=== PATIENT | male | born 1960 | race Caucasian/White ===

== ENCOUNTER 2017-03-20 14:32 | Emergency (ER) | payer OTHER ==
[~2017-03-20] VITALS: Ht 180.3 cm; Wt 99.8 kg
[2017-03-20 14:32] VITALS: BP 153/98
[~2017-03-20 14:32] MED LIST: BACTRIM DS TAB1 EACH PO; CELEBREX100 MG/1 C PO; DEXILANT60 MG PO; HYDROCODON-ACE1 EAC7 PO; LISINOPRIL/HCTZ PO; LOVASTAT10 PO; MAALOX MAXIMUM355 ML PO; MELOXICAM7.5 MG PO; NEURONTIN 300300 M1 PO; NORCO 5-325 TA1 EACH PO; PERCOCET 5-3251 EACH PO; PRILOSEC20 MG PO; PRILOSEC40 MG PO; PROPRANOLOL 1010 MG PO; PROTONIX40 MG PO; RANITIDINE 150150 M1 PO; ULTRAM 50MG TAB50 MG PO; ZANTAC 150MG T150 MG PO
== END 2017-03-20 16:20 | disposition home or self-care (01) ==
LOC: ER 14:32
DX: G56.22 Lesion of ulnar nerve, left upper limb (principal); I10 Essential (primary) hypertension; K21.9 Gastro-esophageal reflux disease without esophagitis; F17.210 Nicotine dependence, cigarettes, uncomplicated; Z86.19 Personal history of other infectious and parasitic diseases; Z88.0 Allergy status to penicillin

== ENCOUNTER 2017-06-01 17:06 | Emergency (ER) | payer OTHER ==
[~2017-06-01] VITALS: Ht 180.3 cm; Wt 117.0 kg
--- NOTE | ~2017-06-01 | EKG ---
[place] [address] [facility] [place] [place] [address] ELECTROCARDIOGRAM REPORT Name: BRITTANEY AGUILLON Room #: DEP [facility]#: [id number] Admission: 06/01/17 Attend Phys: Discharge: 06/01/17 Date of : 64 Report #: [id number] THIS REPORT FOR: //name// [facility] ED Test Date: 2017-06-01 Test Time: 17:21:30 Pat Name: BRITTANEY AGUILLON Department: Room: Gender: M Hot Dip Plater: MZOOK : 1960 Requested By: Charmaine Ramey Order Number: [id number] MD: Josué Felton Measurements Intervals [place] Rate: 78 P: 18 MS: 181 QRS: -33 QRSD: 94 T: 1 QT: 376 QTc: 429 Interpretive Statements Sinus rhythm Left axis deviation RSR' in V1 or V2, probably normal variant Borderline T wave abnormalities Compared to ECG 04/26/2017 23:59:44 No significant change was found Electronically Signed On 06-02-2017 9:10:43 GUZZLER BUILDER by Josué Felton [email or web address] <ELECTRONICALLY SIGNED> By: Josué Felton MD, [facility] 06/02/17 0910 1721 172 Josué Felton MD, [facility] /EPI
[~2017-06-01 17:06] MED LIST changes: +AVAPRO300 MG PO; +HYDROCHLOROTH12.5 M1 PO; +LASIX 40 MG TAB40 M2 PO; +LISINOPRIL20 MG PO; +LUNESTA2 MG PO; +POTASSIUM20 PO
[2017-06-01 17:58] LABS: ABSOLUTE NEUTROPHILS 3.3 thou/uL (1.4-8.2); BASOPHILS 1.3 % (0.0-2.0); EOSINOPHILS 2.3 % (0.0-3.0); HEMATOCRIT 40.1 % (42.0-52.0); HEMOGLOBIN 13.9 gm/dL (14.0-18.0); LYMPHOCYTES 42.4 % (24.0-44.0); MCH 29.2 pg (26.0-34.0); MCHC 34.7 g/dL (28.0-37.0); MCV 84.1 fL (80.0-100.0); MONOCYTES 9.9 % (1.0-8.0); PLATELET COUNT 257 thou/uL (150-400); POLYS 44.1 % (36.0-66.0); RBC 4.77 mil/uL (4.50-6.00); RDW 14.1 % (10.5-14.5); WBC 7.5 thou/uL (4.0-11.0)
[2017-06-01 17:59] LABS: MANUAL DIFF NO
[2017-06-01 18:08] LABS: ANION GAP 7 mmol/L (7-16); BUN 17 mg/dL (7-18); CALCIUM 8.9 mg/dL (8.5-10.1); CHLORIDE 105 mmol/L (98-107); CO2 27 mmol/L (21-32); GLUCOSE 105 mg/dL (74-106); POTASSIUM 4.2 mmol/L (3.5-5.1); SODIUM 139 mmol/L (136-145)
[2017-06-01 18:17] LABS: TROPONIN-I < 0.04 ng/mL (<0.06)
== END 2017-06-01 19:29 | disposition home or self-care (01) ==
LOC: ER 17:06
PROVIDERS: Emergency Medicine
DX: I10 Essential (primary) hypertension (principal); R06.00 Dyspnea, unspecified; K21.9 Gastro-esophageal reflux disease without esophagitis; F17.210 Nicotine dependence, cigarettes, uncomplicated; Z86.19 Personal history of other infectious and parasitic diseases; Z88.0 Allergy status to penicillin

== ENCOUNTER 2017-06-20 13:32 | Emergency (ER) | payer OTHER ==
[~2017-06-20] VITALS: Ht 180.3 cm; Wt 111.1 kg
--- NOTE | ~2017-06-20 | EKG ---
[place] [address] [place] [address] ELECTROCARDIOGRAM REPORT Name: BRITTANEY AGUILLON Room #: REG [facility]#: [id number] Admission: 06/20/17 Attend Phys: Discharge: Date of : 64 Report #: [id number] THIS REPORT FOR: //name// [facility] ED Test Date: 2017-06-20 Test Time: 13:38:06 Pat Name: BRITTANEY AGUILLON Department: Room: Gender: M Shoe Stainer: YOMAIRA : 1960 Requested By: Charmaine Ramey Order Number: [id number] MD: Brady Cool Measurements Intervals [place] Rate: 82 P: 32 [place]: 168 QRS: -28 QRSD: 91 T: -4 QT: 364 QTc: 425 Interpretive Statements Sinus rhythm Borderline left axis deviation RSR' in V1 or V2, probably normal variant Borderline T wave abnormalities ST elev, probable normal early repol pattern Compared to ECG 06/01/2017 17:21:30 ST (T wave) deviation now present T-wave abnormality still present Electronically Signed On 06-20-2017 16:45:29 PREDATORY GAME HUNTER by Brady Cool [email or web address] <ELECTRONICALLY SIGNED> By: Brady Cool MD, FACC 06/20/17 1645 1338 1338 Brady Cool MD, [facility] /EPI
[2017-06-20 14:15] LABS: ABSOLUTE NEUTROPHILS 2.8 thou/uL (1.4-8.2); BASOPHILS 1.1 % (0.0-2.0); EOSINOPHILS 1.9 % (0.0-3.0); HEMATOCRIT 38.6 % (42.0-52.0); HEMOGLOBIN 13.2 gm/dL (14.0-18.0); LYMPHOCYTES 43.8 % (24.0-44.0); MCH 28.9 pg (26.0-34.0); MCHC 34.2 g/dL (28.0-37.0); MCV 84.3 fL (80.0-100.0); MONOCYTES 9.4 % (1.0-8.0); PLATELET COUNT 245 thou/uL (150-400); POLYS 43.8 % (36.0-66.0); RBC 4.58 mil/uL (4.50-6.00); RDW 13.9 % (10.5-14.5); WBC 6.4 thou/uL (4.0-11.0)
[2017-06-20 14:33] LABS: ANION GAP 5 mmol/L (7-16); BUN 19 mg/dL (7-18); CALCIUM 8.9 mg/dL (8.5-10.1); CHLORIDE 106 mmol/L (98-107); CO2 28 mmol/L (21-32); CREATININE 1.1 mg/dL (0.7-1.3); GLUCOSE 113 mg/dL (74-106); SODIUM 139 mmol/L (136-145)
[2017-06-20 14:41] LABS: TROPONIN-I < 0.04 ng/mL (<0.06)
[2017-06-20] MEDS ORDERED: OMEPRAZOLE20 M2 PO (15:59)
[2017-06-20] MEDS ORDERED: MUCINEX1200 MG PO (15:59)
[2017-06-20 18:04] VITALS: BP 148/86
== END 2017-06-20 16:58 | disposition home or self-care (01) ==
LOC: ER 13:32
PROVIDERS: Emergency Medicine
DX: R07.89 Other chest pain (principal); J06.9 Acute upper respiratory infection, unspecified; I10 Essential (primary) hypertension; K21.9 Gastro-esophageal reflux disease without esophagitis; F17.210 Nicotine dependence, cigarettes, uncomplicated; F10.99 Alcohol use, unspecified with unspecified alcohol-induced disorder; Z98.890 Other specified postprocedural states; Z88.0 Allergy status to penicillin

== ENCOUNTER 2017-09-05 19:26 | Inpatient (IN) | payer OTHER ==
[~2017-09-05] VITALS: Ht 180.3 cm; Wt 108.9 kg
--- NOTE | ~2017-09-05 | EKG ---
[address] [place] [email or web address] [address] ELECTROCARDIOGRAM REPORT Name: BRITTANEY AGUILLON Room #: 208-P ADM IN M.R.#: [id number] Admission: 09/05/17 Attend Phys: Paolo Branch MD Discharge: Date of : 64 Report #: [id number] THIS REPORT FOR: //name// [facility] ED Test Date: 2017-09-05 Test Time: 19:30:51 Pat Name: BRITTANEY AGUILLON Department: Room: 208 Gender: M Police Lieutenant: YOMAIRA : 1960 Requested By: Theresa Cooper Order Number: [id number] MD: Ray Terrazas Measurements Intervals [place] Rate: 78 P: 13 NE: 173 QRS: -40 QRSD: 92 T: 23 QT: 372 QTc: 424 Interpretive Statements Sinus rhythm Left axis deviation RSR' in V1 or V2, probably normal variant Borderline T wave abnormalities Borderline ST elevation, anterior leads Compared to ECG 06/20/2017 13:38:06 No significant changes Electronically Signed On 09-06-2017 7:25:17 CDT by Ray Terrazas [email or web address] <ELECTRONICALLY SIGNED> By: Ray Terrazas MD 09/06/17 0725 29 29 Ray Terrazas MD /EPI
[~2017-09-05 19:26] MED LIST changes: +MUCINEX1200 MG PO; +OMEPRAZOLE20 M2 PO
[2017-09-05 19:29] VITALS: BP 160/99
[2017-09-05] MEDS ORDERED: NORVASC2.5 MG PO (19:52)
[2017-09-05 20:01] LABS: ABSOLUTE NEUTROPHILS 3.4 thou/uL (1.4-8.2); BASOPHILS 1.1 % (0.0-2.0); EOSINOPHILS 2.2 % (0.0-3.0); HEMATOCRIT 41.3 % (42.0-52.0); HEMOGLOBIN 14.1 gm/dL (14.0-18.0); LYMPHOCYTES 39.3 % (24.0-44.0); MCH 28.7 pg (26.0-34.0); MCHC 34.2 g/dL (28.0-37.0); MCV 84.1 fL (80.0-100.0); MONOCYTES 10.4 % (1.0-8.0); PLATELET COUNT 239 thou/uL (150-400); RBC 4.91 mil/uL (4.50-6.00); RDW 14.7 % (10.5-14.5); WBC 7.3 thou/uL (4.0-11.0)
[2017-09-05 20:07] LABS: ANION GAP 8 mmol/L (7-16); BUN 22 mg/dL (7-18); CALCIUM 8.6 mg/dL (8.5-10.1); CHLORIDE 109 mmol/L (98-107); CO2 25 mmol/L (21-32); GLUCOSE 111 mg/dL (74-106); POTASSIUM 4.1 mmol/L (3.5-5.1); SODIUM 142 mmol/L (136-145)
[2017-09-05 20:16] LABS: TROPONIN-I < 0.04 ng/mL (<0.06)
[2017-09-05 21:07] VITALS: BP 160/99
[2017-09-05 21:15] VITALS: BP 143/79
[2017-09-06 00:54] VITALS: BP 140/94
[2017-09-06 02:57] LABS: ANION GAP 7 mmol/L (7-16); BUN 20 mg/dL (7-18); CHLORIDE 108 mmol/L (98-107); CHOLESTEROL 131 mg/dL (<200); CO2 26 mmol/L (21-32); GLUCOSE 146 mg/dL (74-106); HDL CHOLESTEROL 34 mg/dL (>40); LDL CHOLESTEROL 79 mg/dL (<100); POTASSIUM 3.8 mmol/L (3.5-5.1); SODIUM 141 mmol/L (136-145); TC:HDL 3.9 Ratio (Not establshd); TRIGLYCERIDE 92 mg/dL (<150); TROPONIN-I < 0.04 ng/mL (<0.06); VLDL 18 mg/dL (<40)
[2017-09-06 02:58] LABS: SERUM ASSESSMENT Clear
[2017-09-06 05:10] VITALS: BP 121/47
[2017-09-06 07:56] VITALS: BP 143/79
[2017-09-06] MEDS ORDERED: ASPIR 8181 MG PO (10:03)
[2017-09-06 10:19] VITALS: BP 143/79
[2017-09-06 12:07] LABS: GLYCOHEMOGLOBIN (HGB A1C) 4.9 % (4.8-5.6)
== END 2017-09-06 10:32 | disposition home or self-care (01) | DRG 313 ==
LOC: ER 19:26 → 2N 20:54 → EROBS 20:54 → 2N 22:07
PROVIDERS: Emergency Medicine; Nurse Practitioner Family
DX: R07.89 Other chest pain (principal); I50.30 Unspecified diastolic (congestive) heart failure; K21.9 Gastro-esophageal reflux disease without esophagitis; F17.200 Nicotine dependence, unspecified, uncomplicated; G47.33 Obstructive sleep apnea (adult) (pediatric); I11.0 Hypertensive heart disease with heart failure; F19.10 Other psychoactive substance abuse, uncomplicated; Z86.19 Personal history of other infectious and parasitic diseases; Z82.49 Family history of ischemic heart disease and other diseases of the circulatory system; Z88.0 Allergy status to penicillin
CPT/HCPCS: 10081

== ENCOUNTER 2018-01-05 08:41 | Emergency (ER) | payer OTHER ==
[~2018-01-05] VITALS: Ht 180.3 cm; Wt 108.9 kg
--- NOTE | ~2018-01-05 | EKG ---
[address] [place] [address] ELECTROCARDIOGRAM REPORT Name: BRITTANEY AGUILLON Room #: DEP [facility]#: [id number] Admission: 01/05/18 Attend Phys: Discharge: 01/05/18 Date of : 64 Report #: [id number] THIS REPORT FOR: //name// [facility] ED Test Date: 2018-01-05 Test Time: 10:07:08 Pat Name: BRITTANEY AGUILLON Department: Room: Gender: M Group Cio: MZOOK : 1960 Requested By: Jake Nguyen Order Number: [id number] MD: Josué Felton Measurements Intervals [place] Rate: 64 P: -1 DC: 183 QRS: -38 QRSD: 102 T: -22 QT: 428 QTc: 442 Interpretive Statements Sinus rhythm Left axis deviation RSR' in V1 or V2, probably normal variant Borderline T abnormalities, inferior leads Borderline ST elevation, anterior leads Compared to ECG 09/05/2017 19:30:51 No significant changes Electronically Signed On 01-05-2018 14:45:16 CDT by Josué Felton [email or web address] <ELECTRONICALLY SIGNED> By: Josué Felton MD, [facility] 01/05/18 1445 1007 1007 Josué Felton MD, [facility] /EPI
[~2018-01-05 08:41] MED LIST changes: +ASPIR 8181 MG PO; +NORVASC2.5 MG PO
[2018-01-05 09:27] LABS: ABSOLUTE NEUTROPHILS 6.1 thou/uL (1.4-8.2); BASOPHILS 0.5 % (0.0-2.0); EOSINOPHILS 1.5 % (0.0-3.0); HEMATOCRIT 39.5 % (42.0-52.0); HEMOGLOBIN 13.6 gm/dL (14.0-18.0); LYMPHOCYTES 23.1 % (24.0-44.0); MCH 28.8 pg (26.0-34.0); MCHC 34.3 g/dL (28.0-37.0); MCV 83.8 fL (80.0-100.0); MONOCYTES 11.1 % (1.0-8.0); PLATELET COUNT 225 thou/uL (150-400); POLYS 63.8 % (36.0-66.0); RBC 4.71 mil/uL (4.50-6.00); RDW 14.2 % (10.5-14.5); WBC 9.6 thou/uL (4.0-11.0)
[2018-01-05 09:44] LABS: ANION GAP 7 mmol/L (7-16); BUN 15 mg/dL (7-18); CALCIUM 8.6 mg/dL (8.5-10.1); CHLORIDE 103 mmol/L (98-107); CO2 28 mmol/L (21-32); CREATININE 1.1 mg/dL (0.7-1.3); GLUCOSE 100 mg/dL (74-106); POTASSIUM 3.9 mmol/L (3.5-5.1); SODIUM 138 mmol/L (136-145)
[2018-01-05 09:49] LABS: SGOT 20 U/L (15-37); SGPT 24 U/L (30-65); TOTAL BILIRUBIN 0.5 mg/dL (<0.1-1.0); TOTAL PROTEIN 6.3 g/dL (6.4-8.2); TROPONIN-I <0.06 ng/mL (<0.06)
[2018-01-05] MEDS ORDERED: VENTOLIN HFA 1818 GM INH (10:15)
[2018-01-05] MEDS ORDERED: PREDNISONE 20 M20 MG PO (10:15)
[2018-01-05 10:26] LABS: URINE BILIRUBIN NEGATIVE (Negative); URINE BLOOD TRACE (Negative); URINE CLARITY CLEAR; URINE COLOR YELLOW; URINE GLUCOSE-RANDOM* NEGATIVE (Negative); URINE KETONES NEGATIVE (Negative); URINE LEUKOCYTES-REFLEX NEGATIVE (Negative); URINE NITRITE-REFLEX NEGATIVE (Negative); URINE PROTEIN (DIPSTICK) NEGATIVE (Negative); URINE SPECIFIC GRAVITY 1.015 (1.005-1.035); URINE UROBILINOGEN 0.2 E.U./dl (0.2-1.0)
== END 2018-01-05 10:42 | disposition home or self-care (01) ==
LOC: ER 08:41
PROVIDERS: Emergency Medicine
DX: J06.9 Acute upper respiratory infection, unspecified (principal); J98.01 Acute bronchospasm; R19.7 Diarrhea, unspecified; F17.200 Nicotine dependence, unspecified, uncomplicated; I11.0 Hypertensive heart disease with heart failure; I50.9 Heart failure, unspecified; K21.9 Gastro-esophageal reflux disease without esophagitis; M19.90 Unspecified osteoarthritis, unspecified site; E78.00 Pure hypercholesterolemia, unspecified; Z88.0 Allergy status to penicillin

== ENCOUNTER 2018-11-25 20:35 | Emergency (ER) | payer OTHER ==
[~2018-11-25] VITALS: Ht 180.3 cm; Wt 108.9 kg
[~2018-11-25 20:35] MED LIST changes: +PREDNISONE 20 M20 MG PO; +VENTOLIN HFA 1818 GM INH
[2018-11-25] MEDS ORDERED: LISINOPRIL10 MG PO (20:54)
[2018-11-25] MEDS ORDERED: OMEPRAZOLE 20 M20 M1 PO (20:55)
[2018-11-25 21:17] LABS: ABSOLUTE NEUTROPHILS 3.4 thou/uL (1.4-8.2); BASOPHILS 1.2 % (0.0-2.0); HEMATOCRIT 39.1 % (42.0-52.0); HEMOGLOBIN 13.3 gm/dL (14.0-18.0); MCH 27.8 pg (26.0-34.0); MCV 81.8 fL (80.0-100.0); MONOCYTES 11.1 % (1.0-8.0); PLATELET COUNT 207 thou/uL (150-400); POLYS 45.7 % (36.0-66.0); RBC 4.78 mil/uL (4.50-6.00); RDW 14.5 % (10.5-14.5); WBC 7.4 thou/uL (4.0-11.0)
[2018-11-25 21:33] LABS: CALCIUM 8.3 mg/dL (8.5-10.1); CREATININE 1.1 mg/dL (0.7-1.3); POTASSIUM 3.3 mmol/L (3.5-5.1)
[2018-11-25] MEDS ORDERED: DOXYCYCLINE 10100 MG PO (22:41)
[2018-11-25 23:34] LABS: AMP/METHAMP POSITIVE (Negative); BARBITURATES Negative (Negative); BENZODIAZEPINES Negative (Negative); COCAINE Negative (Negative); METHADONE Negative (Negative); OPIATES Negative (Negative); PCP Negative (Negative)
[2018-11-26 00:30] VITALS: BP 142/86
--- NOTE | 2018-11-26 07:51 | EKG ---
[place] [address] [facility] [place] [address] ELECTROCARDIOGRAM REPORT Name: BRITTANEY AGUILLON Room #: DEP [facility]#: [id number] ������������������ Admission: 11/25/18 ������������������ Attend Phys: Discharge: 11/25/18 ������������������ Date of : 64 Report #: [id number] ����������������������������������������������������������������� [id number] THIS REPORT FOR: //name// [facility] ED Test Date: 2018-11-25 Test Time: 20:42:02 Pat Name: BRITTANEY AGUILLON Department: Room: Gender: M Automatic Developer: YOGESH : 1960 Requested By: Meliton Gilliam Order Number: [id number] MD: Josué Felton Measurements Intervals [place] Rate: 81 P: 39 MT: 170 QRS: -44 QRSD: 107 T: -22 QT: 391 QTc: 454 Interpretive Statements Sinus rhythm Abnormal R-wave progression, late transition Nonspecific T wave abnormality Compared to ECG 01/05/2018 10:07:08 Nonspecific change in the T wave abnormality Electronically Signed On 11-26-2018 7:51:07 CDT by Josué Felton [email or web address] ��������������������������������������������� <ELECTRONICALLY SIGNED> ���������������������������������������� By: Josué Felton MD, [facility] ��������������������������������������������� 11/26/18 0751 41 41 Josué Felton MD, [facility] /EPI
== END 2018-11-25 21:50 | disposition home or self-care (01) ==
LOC: ER 20:35
PROVIDERS: Emergency Medicine
DX: L03.114 Cellulitis of left upper limb (principal); I10 Essential (primary) hypertension; K21.9 Gastro-esophageal reflux disease without esophagitis; B19.20 Unspecified viral hepatitis C without hepatic coma; G47.33 Obstructive sleep apnea (adult) (pediatric); B19.10 Unspecified viral hepatitis B without hepatic coma; M19.90 Unspecified osteoarthritis, unspecified site; E78.00 Pure hypercholesterolemia, unspecified; F17.210 Nicotine dependence, cigarettes, uncomplicated; Z88.0 Allergy status to penicillin; Z79.899 Other long term (current) drug therapy

== ENCOUNTER 2018-12-31 09:39 | Emergency (ER) | payer OTHER ==
[~2018-12-31] VITALS: Ht 172.7 cm; Wt 83.9 kg
[~2018-12-31 09:39] MED LIST changes: +DOXYCYCLINE 10100 MG PO; +LISINOPRIL10 MG PO; +OMEPRAZOLE 20 M20 M1 PO
[2018-12-31 11:34] LABS: ABSOLUTE NEUTROPHILS 2.9 thou/uL (1.4-8.2); BASOPHILS 1.1 % (0.0-2.0); EOSINOPHILS 2.9 % (0.0-3.0); HEMATOCRIT 41.6 % (42.0-52.0); MCH 27.8 pg (26.0-34.0); MCHC 33.6 g/dL (28.0-37.0); MCV 82.7 fL (80.0-100.0); MONOCYTES 11.8 % (1.0-8.0); PLATELET COUNT 248 thou/uL (150-400); POLYS 46.2 % (36.0-66.0); RBC 5.02 mil/uL (4.50-6.00); RDW 14.5 % (10.5-14.5); WBC 6.2 thou/uL (4.0-11.0)
[2018-12-31 11:42] LABS: CALCIUM 8.6 mg/dL (8.5-10.1); POTASSIUM 3.8 mmol/L (3.5-5.1)
[2018-12-31 11:48] LABS: ALBUMIN 3.1 g/dL (3.4-5.0); TOTAL BILIRUBIN 0.1 mg/dL (<0.1-1.0); TOTAL PROTEIN 6.5 g/dL (6.4-8.2)
[2018-12-31 13:08] LABS: AMP/METHAMP Negative (Negative); BARBITURATES Negative (Negative); BENZODIAZEPINES POSITIVE (Negative); COCAINE Negative (Negative); METHADONE Negative (Negative); OPIATES Negative (Negative); PCP Negative (Negative)
[2018-12-31 13:48] VITALS: BP 155/70
--- NOTE | 2019-01-01 18:19 | EKG ---
[place] [address] [facility] [place] [address] ELECTROCARDIOGRAM REPORT Name: BRITTANEY AGUILLON Room #: DEP [facility]#: [id number] ������������������ Admission: 12/31/18 ������������������ Attend Phys: Discharge: 12/31/18 ������������������ Date of : 64 Report #: [id number] ����������������������������������������������������������������� [id number] THIS REPORT FOR: //name// [facility] ED Test Date: 2018-12-31 Test Time: 10:16:41 Pat Name: BRITTANEY AGUILLON Department: Room: Gender: M Composition Teacher: Murtaza : 1960 Requested By: Sukhdev Dozier Order Number: [id number] MD: Josué Felton Measurements Intervals [place] Rate: 57 P: 34 HI: 187 QRS: -18 QRSD: 102 T: -61 QT: 426 QTc: 415 Interpretive Statements Sinus rhythm Borderline left axis deviation T wave abnormality, inferior and lateral leads Compared to ECG 11/25/2018 20:42:02 T-wave abnormality still present Electronically Signed On 01-01-2019 18:19:36 CDT by Josué Felton [email or web address] ��������������������������������������������� <ELECTRONICALLY SIGNED> ���������������������������������������� By: Josué Felton MD, [facility] ��������������������������������������������� 01/01/19 1819 1016 1016 Josué Felton MD, [facility] /EPI
== END 2018-12-31 13:56 | disposition home or self-care (01) ==
LOC: ER 09:39
PROVIDERS: Emergency Medicine
DX: R56.9 Unspecified convulsions (principal); F19.10 Other psychoactive substance abuse, uncomplicated; F17.210 Nicotine dependence, cigarettes, uncomplicated; K21.9 Gastro-esophageal reflux disease without esophagitis; I11.0 Hypertensive heart disease with heart failure; I50.9 Heart failure, unspecified; G47.33 Obstructive sleep apnea (adult) (pediatric); M19.90 Unspecified osteoarthritis, unspecified site; E78.00 Pure hypercholesterolemia, unspecified; Z88.0 Allergy status to penicillin

== ENCOUNTER 2019-11-24 11:06 | Emergency (ER) | payer OTHER ==
[~2019-11-24] VITALS: Ht 180.3 cm; Wt 107.2 kg
[2019-11-24 11:40] LABS: ABSOLUTE NEUTROPHILS 4.7 thou/uL (1.4-8.2); BASOPHILS 0.8 % (0.0-2.0); EOSINOPHILS 2.3 % (0.0-3.0); HEMATOCRIT 42.1 % (42.0-52.0); HEMOGLOBIN 14.1 gm/dL (14.0-18.0); LYMPHOCYTES 27.6 % (24.0-44.0); MCHC 33.6 g/dL (28.0-37.0); MCV 83.4 fL (80.0-100.0); PLATELET COUNT 279 thou/uL (150-400); POLYS 61.3 % (36.0-66.0); RBC 5.05 mil/uL (4.50-6.00); RDW 15.8 % (10.5-14.5); WBC 7.7 thou/uL (4.0-11.0)
[2019-11-24 11:51] LABS: ANION GAP 2 mmol/L (7-16); BUN 19 mg/dL (7-18); CALCIUM 8.4 mg/dL (8.5-10.1); CHLORIDE 102 mmol/L (98-107); CO2 30 mmol/L (21-32); CREATININE 1.1 mg/dL (0.7-1.3); GLUCOSE 140 mg/dL (74-106); POTASSIUM 3.7 mmol/L (3.5-5.1); SODIUM 134 mmol/L (136-145)
[2019-11-24 11:52] LABS: APTT 28.3 Seconds (24.5-32.8)
[2019-11-24 12:01] LABS: SGOT 19 U/L (15-37); SGPT 24 U/L (30-65); TOTAL BILIRUBIN 0.2 mg/dL (0.2-1.0); TOTAL PROTEIN 6.1 g/dL (6.4-8.2); TROPONIN-I <0.06 ng/mL (<0.06)
[2019-11-24 12:37] LABS: AMP/METHAMP Negative (Negative); BARBITURATES Negative (Negative); BENZODIAZEPINES Negative (Negative); COCAINE Negative (Negative); METHADONE Negative (Negative); OPIATES Negative (Negative); PCP Negative (Negative)
[2019-11-24 14:58] VITALS: BP 165/91
--- NOTE | 2019-11-25 07:42 | EKG ---
[facility] [place] [address] ELECTROCARDIOGRAM REPORT Name: BRITTANEY AGUILLON Room #: DEP [facility]#: [id number] Admission: 11/24/19 Attend Phys: Discharge: 11/24/19 Date of : 64 Report #: [id number] THIS REPORT FOR: cc: FAM - Family physician unknown FAM - Family physician unknown Josué Felton MD [facility] THIS REPORT FOR: //name// [facility] ED Test Date: 2019-11-24 Test Time: 11:08:00 Pat Name: BRITTANEY AGUILLON Department: Room: Gender: Dish Up Person: MONIKA : 1960 Requested By: Meliton Gilliam Order Number: [id number] MD: Josué Felton Measurements Intervals [place] Rate: 80 P: 21 DC: 176 QRS: -42 QRSD: 96 T: -32 QT: 398 QTc: 460 Interpretive Statements Sinus rhythm Left atrial enlargement Left axis deviation Abnormal R-wave progression, late transition Borderline T abnormalities, inferior leads Borderline ST elevation, anterior leads Compared to ECG 12/31/2018 10:16:41 No significant change was found Electronically Signed On 11-25-2019 7:41:32 CDT by Josué Felton [email or web address] <ELECTRONICALLY SIGNED> By: Josué Felton MD, [facility] 11/25/19 0741 1108 1108 Josué Felton MD, [facility] /EPI
== END 2019-11-24 14:59 | disposition home or self-care (01) ==
LOC: ER 11:06
PROVIDERS: Emergency Medicine
DX: R41.0 Disorientation, unspecified (principal); R20.0 Anesthesia of skin; R07.9 Chest pain, unspecified; R42 Dizziness and giddiness; K21.9 Gastro-esophageal reflux disease without esophagitis; I11.0 Hypertensive heart disease with heart failure; I50.9 Heart failure, unspecified; M19.90 Unspecified osteoarthritis, unspecified site; E78.00 Pure hypercholesterolemia, unspecified; F17.210 Nicotine dependence, cigarettes, uncomplicated; Z98.890 Other specified postprocedural states; Z79.899 Other long term (current) drug therapy; Z88.0 Allergy status to penicillin

== ENCOUNTER 2020-03-19 07:28 | Emergency (ER) | payer OTHER ==
[~2020-03-19] VITALS: Ht 180.3 cm; Wt 102.1 kg
[2020-03-19 07:30] VITALS: BP 163/97
[2020-03-19 08:09] LABS: EOSINOPHILS 3.2 % (0.0-3.0); HEMATOCRIT 36.3 % (42.0-52.0); HEMOGLOBIN 12.2 gm/dL (14.0-18.0); LYMPHOCYTES 34.3 % (24.0-44.0); MCH 27.4 pg (26.0-34.0); MCHC 33.5 g/dL (28.0-37.0); MCV 81.7 fL (80.0-100.0); MONOCYTES 8.8 % (1.0-8.0); PLATELET COUNT 333 thou/uL (150-400); POLYS 52.7 % (36.0-66.0); RBC 4.44 mil/uL (4.50-6.00); RDW 14.6 % (10.5-14.5); WBC 7.6 thou/uL (4.0-11.0)
[2020-03-19 08:10] LABS: ANION GAP 9 mmol/L (7-16); BUN 18 mg/dL (7-18); CALCIUM 8.5 mg/dL (8.5-10.1); CHLORIDE 105 mmol/L (98-107); CO2 25 mmol/L (21-32); CREATININE 0.9 mg/dL (0.7-1.3); GLUCOSE 126 mg/dL (74-106); POTASSIUM 3.9 mmol/L (3.5-5.1); SODIUM 139 mmol/L (136-145)
[2020-03-19 08:20] LABS: URINE BILIRUBIN NEGATIVE (Negative); URINE BLOOD NEGATIVE (Negative); URINE CLARITY CLEAR; URINE COLOR YELLOW; URINE GLUCOSE-RANDOM* NEGATIVE (Negative); URINE KETONES NEGATIVE (Negative); URINE LEUKOCYTES-REFLEX NEGATIVE (Negative); URINE NITRITE-REFLEX NEGATIVE (Negative); URINE PROTEIN (DIPSTICK) NEGATIVE (Negative); URINE SPECIFIC GRAVITY 1.025 (1.005-1.035); URINE UROBILINOGEN 0.2 E.U./dl (0.2-1.0)
[2020-03-19 08:28] LABS: AMP/METHAMP POSITIVE (Negative); BARBITURATES Negative (Negative); BENZODIAZEPINES Negative (Negative); COCAINE Negative (Negative); METHADONE Negative (Negative); OPIATES POSITIVE (Negative); PCP Negative (Negative)
[2020-03-19 08:30] LABS: ALBUMIN 2.5 g/dL (3.4-5.0); MAGNESIUM 1.7 mg/dL (1.8-2.4); SGOT 21 U/L (15-37); SGPT 23 U/L (30-65); TOTAL BILIRUBIN 0.2 mg/dL (0.2-1.0); TOTAL PROTEIN 6.5 g/dL (6.4-8.2); TROPONIN-I <0.06 ng/mL (<0.06)
--- NOTE | 2020-03-19 10:04 | EKG ---
[facility] [place] [address] ELECTROCARDIOGRAM REPORT Name: BRITTANEY AGUILLON Room #: 170-9 ADM IN M.R.#: [id number] Admission: 03/19/20 Attend Phys: Paolo Branch MD Discharge: Date of : 64 Report #: [id number] THIS REPORT FOR: cc: DELANEY - Melinda family physician/PCP DELANEY - Melinda family physician/PCP Tyson Navarro MD [facility] ~ THIS REPORT FOR: //name// [facility] ED Test Date: 2020-03-19 Test Time: 07:36:39 Pat Name: BRITTANEY AGUILLON Department: Room: 170 Gender: M Windows Admin: KF : 1960 Requested By: Jake Nguyen Order Number: [id number] MD: Tyson Navarro Measurements Intervals [place] Rate: 72 P: 14 DE: 183 QRS: -22 QRSD: 100 T: -41 QT: 387 QTc: 424 Interpretive Statements Sinus rhythm Borderline left axis deviation Borderline T abnormalities, diffuse leads Compared to ECG 11/24/2019 11:08:00 Atrial abnormality no longer present ST (T wave) deviation no longer present T-wave abnormality still present Electronically Signed On 03-19-2020 10:04:43 CDT by Tyson Navarro [email or web address] <ELECTRONICALLY SIGNED> By: Tyson Navarro MD, FACC 03/19/20 1004 5 5 Tyson Navarro MD, [facility] /EPI
[2020-03-19 13:10] VITALS: BP 156/80
--- NOTE | 2020-03-19 14:20 | 2DMMODE ---
[facility] [place] [address] 2 D/M-MODE ECHOCARDIOGRAM Name: BRITTANEY AGUILLON Room #: 170-21 ADM IN .R.#: [id number] Admission: 03/19/20 Attend Phys: Paolo Branch MD Discharge: Date of : 64 Report #: [id number] THIS REPORT FOR: cc: FAM - No family physician/PCP FAM - No family physician/PCP Shane Martinez MD ~ APPROVED REPORT Study performed: 03/19/2020 13:35:54 EXAM: Comprehensive 2D, Doppler, and color-flow Echocardiogram Patient Location: ER Status: routine BSA: 2.22 BP: 156/80 mmHg Rhythm: NSR Other Information Study Quality: Good Indications Chest Pain 2D Dimensions RVDd: 38.33 mm IVSd: 12.47 (7-11mm) LVOT Diam: 20.07 (18-24mm) LVDd: 50.08 mm PWd: 12.95 (7-11mm) Ascending Ao: 34.97 (22-36mm) LVDs: 35.23 (25-40mm) Aortic Root: 34.27 mm Volumes Left Atrial Volume (Systole) Single Plane 4CH: 40.36 mL Single Plane 2CH: 77.21 mL LA ESV Index: 30.00 mL/m2 Aortic Valve AoV Peak Jordy.: 1.60 m/s AO Peak Gr.: 10.27 mmHg LVOT Max P.80 mmHg LVOT Max V: 1.10 m/s SONYA Vmax: 2.16 cm2 [facility] [address] [address] 2 D/M-MODE ECHOCARDIOGRAM Name: BRITTANEY AGUILLON Room #: 170-21 ADM IN M.R.#: [id number] Admission: 03/19/20 Attend Phys: Paolo Branch MD Discharge: Date of : 64 Report #: [id number] Mitral Valve E/A Ratio: 1.2 MV Decel. Time: 218.80 ms MV E Max Jordy.: 0.98 m/s MV A Jordy.: 0.81 m/s MV PHT: 63.45 ms IVRT: 115.34 ms Pulmonary Valve PV Peak Jordy.: 1.00 m/s PV Peak Gr.: 3.99 mmHg Pulmonary Vein P Vein S: 0.39 m/s P Vein D: 0.33 m/s P Vein S/D Ratio: 1.18 Tricuspid Valve TR Peak Jordy.: 2.42 m/s RAP Estimate: 10.00 mmHg TR Peak Gr.: 23.38 mmHg Left Ventricle The left ventricle is normal size. There is normal LV segmental wall motion. Mild concentric left ventricular hypertrophy. Left ventricular systolic function is normal. LVEF is 55%. Mild diastolic dysfunction is present. Right Ventricle The right ventricle is normal size. The right ventricular systolic function is normal. Atria The left atrium size is normal. The right atrium size is normal. Aortic Valve The aortic valve is normal in structure. No aortic regurgitation is present. There is no aortic valvular stenosis. Mitral Valve The mitral valve is normal in structure. Trace mitral regurgitation. Tricuspid Valve The tricuspid valve is normal in structure. Trace tricuspid regurgitation. Estimated PAP is 40mmHg. [facility] [address] [place] [address] 2 D/M-MODE ECHOCARDIOGRAM Name: BRITTANEY AGUILLON Room #: 170-21 ADM IN .R.#: [id number] Admission: 03/19/20 Attend Phys: Paolo Branch MD Discharge: Date of : 64 Report #: [id number] Pulmonic Valve The pulmonary valve is normal in structure. Trace pulmonic regurgitation. Great Vessels The aortic root is normal in size. The ascending aorta is normal in size. IVC is dilated and collapses >50% with inspiration. Pericardium There is no pericardial effusion. <Conclusion> The left ventricle is normal size. LVEF is 55%. The aortic valve is normal in structure. The mitral valve is normal in structure. Trace mitral regurgitation. The tricuspid valve is normal in structure. Trace tricuspid regurgitation. Estimated PAP is 40mmHg. The pulmonary valve is normal in structure. Trace pulmonic regurgitation. There is no pericardial effusion. <ELECTRONICALLY SIGNED> By: Shane Martinez MD 03/19/20 1419 18 18 Shane Martinez MD /INF
[2020-03-19 14:42] VITALS: BP 156/80
--- NOTE | 2020-03-19 15:38 | NUR ---
PT REQUESTING TO LEAVE AMA; DR KAYLA HERBERT TO MAKE HIM AWARE AND TO D/C PT
[2020-03-19 16:15] VITALS: BP 156/80
== END 2020-03-19 16:15 | disposition left against medical advice (07) ==
LOC: ER 07:28 → EROBS 09:32 → ER 09:32 → EROBS 11:13 → ER 16:15
PROVIDERS: Emergency Medicine
DX: R07.9 Chest pain, unspecified (principal); L03.116 Cellulitis of left lower limb; E88.09 Other disorders of plasma-protein metabolism, not elsewhere classified; F15.90 Other stimulant use, unspecified, uncomplicated; R94.31 Abnormal electrocardiogram [ECG] [EKG]; F19.10 Other psychoactive substance abuse, uncomplicated; I11.0 Hypertensive heart disease with heart failure; I50.32 Chronic diastolic (congestive) heart failure; E78.5 Hyperlipidemia, unspecified; R06.02 Shortness of breath; K21.9 Gastro-esophageal reflux disease without esophagitis; M19.90 Unspecified osteoarthritis, unspecified site; E78.00 Pure hypercholesterolemia, unspecified; F17.210 Nicotine dependence, cigarettes, uncomplicated; Z98.890 Other specified postprocedural states; Z79.899 Other long term (current) drug therapy; Z88.0 Allergy status to penicillin; E66.9 Obesity, unspecified; Z68.31 Body mass index [BMI] 31.0-31.9, adult

== ENCOUNTER 2020-03-20 23:31 | Emergency (ER) | payer OTHER ==
[~2020-03-20] VITALS: Ht 180.3 cm; Wt 108.9 kg
[2020-03-21 00:29] LABS: HEMOGLOBIN 12.9 gm/dL (14.0-18.0); MCH 27.7 pg (26.0-34.0); MCHC 33.8 g/dL (28.0-37.0); MCV 81.7 fL (80.0-100.0); PLATELET COUNT 377 thou/uL (150-400); RBC 4.65 mil/uL (4.50-6.00); RDW 14.8 % (10.5-14.5); WBC 11.4 thou/uL (4.0-11.0)
[2020-03-21 00:38] LABS: ANION GAP 7 mmol/L (7-16); BUN 21 mg/dL (7-18); CALCIUM 8.6 mg/dL (8.5-10.1); CHLORIDE 100 mmol/L (98-107); CO2 29 mmol/L (21-32); CREATININE 1.2 mg/dL (0.7-1.3); GLUCOSE 114 mg/dL (74-106); POTASSIUM 3.7 mmol/L (3.5-5.1); SODIUM 136 mmol/L (136-145)
[2020-03-21 00:49] LABS: ALBUMIN 2.9 g/dL (3.4-5.0); SGOT 24 U/L (15-37); SGPT 35 U/L (30-65); TOTAL BILIRUBIN 0.3 mg/dL (0.2-1.0); TOTAL PROTEIN 7.2 g/dL (6.4-8.2); TROPONIN-I <0.06 ng/mL (<0.06)
[2020-03-21 01:29] LABS: ABSOLUTE NEUTROPHILS 5.6 thou/uL (1.4-8.2); METAMYELOCYTES 1 %
[2020-03-21] MEDS ORDERED: BACTRIM DS TAB1 EACH PO (03:09)
[2020-03-21 04:39] VITALS: BP 156/91
--- NOTE | 2020-03-23 07:27 | EKG ---
[facility] [place] [address] ELECTROCARDIOGRAM REPORT Name: BRITTANEY AGUILLON Room #: DEP [facility]#: [id number] Admission: 03/20/20 Attend Phys: Discharge: 03/21/20 Date of : 64 Report #: [id number] THIS REPORT FOR: cc: DELANEY Lawrence family physician/PCP DELANEY Lawrence family physician/PCP Josué Felton MD [facility] THIS REPORT FOR: //name// [facility] ED Test Date: 2020-03-20 Test Time: 23:57:51 Pat Name: BRITTANEY AGUILLON Department: Room: Gender: Medical Staff Specialist: MPAK : 1960 Requested By: Elena Rajan Order Number: [id number] MD: Josué Felton Measurements Intervals [place] Rate: 76 P: 25 AL: 178 QRS: -34 QRSD: 96 T: -12 QT: 404 QTc: 455 Interpretive Statements Sinus rhythm Left axis deviation Nonspecific T wave abnormality Compared to ECG 03/19/2020 07:36:39 No significant change was found Electronically Signed On 03-23-2020 7:27:46 CDT by Josué Felton [email or web address] <ELECTRONICALLY SIGNED> By: Josué Felton MD, [facility] 03/23/20 0727 2357 2357 Josué Felton MD, [facility] /EPI
== END 2020-03-21 04:45 | disposition home or self-care (01) ==
LOC: ER 23:31
PROVIDERS: Student in an Organized Health Care Education/Training Program
DX: R07.89 Other chest pain (principal); L02.416 Cutaneous abscess of left lower limb; L03.116 Cellulitis of left lower limb; R06.02 Shortness of breath; I11.0 Hypertensive heart disease with heart failure; I50.9 Heart failure, unspecified; K21.9 Gastro-esophageal reflux disease without esophagitis; M19.90 Unspecified osteoarthritis, unspecified site; E78.00 Pure hypercholesterolemia, unspecified; F17.210 Nicotine dependence, cigarettes, uncomplicated; Z79.899 Other long term (current) drug therapy; Z88.0 Allergy status to penicillin

== ENCOUNTER 2021-04-22 17:32 | Inpatient (IN) | payer OTHER ==
[~2021-04-22] VITALS: Ht 152.4 cm; Wt 101.9 kg
[2021-04-22 17:32] VITALS: BP 188/109
--- NOTE | 2021-04-22 18:09 | NUR ---
PT IN CT, REFUSING IV FOR CT TEAM. PT REFUSED EDUCATION REGARDING NEED FOR IV FOR CT SCAN. PT VERBALLY ABUSIVE TO STAFF, MOVING ARM & LEGS AROUND REPEATEDLY WHILE ATTEMPTING IV PLACEMENT. PT DOES NOT STOP MOVEMENT WITH EDUCATION. UNABLE TO PLACE IV SAFELY AT THIS TIME
[2021-04-22 19:02] LABS: ABSOLUTE NEUTROPHILS 3.1 thou/uL (1.4-8.2); BASOPHILS 0.8 % (0.0-2.0); EOSINOPHILS 2.2 % (0.0-3.0); HEMATOCRIT 39.3 % (42.0-52.0); HEMOGLOBIN 13.2 gm/dL (14.0-18.0); LYMPHOCYTES 35.4 % (24.0-44.0); MCHC 33.6 g/dL (28.0-37.0); MCV 83.5 fL (80.0-100.0); PLATELET COUNT 236 thou/uL (150-400); POLYS 51.6 % (36.0-66.0); RBC 4.71 mil/uL (4.50-6.00); RDW 14.5 % (10.5-14.5); WBC 6.1 thou/uL (4.0-11.0)
[2021-04-22 19:07] LABS: CALCIUM 8.3 mg/dL (8.5-10.1); CREATININE 1.2 mg/dL (0.7-1.3); POTASSIUM 3.3 mmol/L (3.5-5.1)
[2021-04-22 19:17] LABS: ALBUMIN 2.9 g/dL (3.4-5.0); MAGNESIUM 1.9 mg/dL (1.8-2.4); TOTAL BILIRUBIN 0.3 mg/dL (0.2-1.0); TOTAL PROTEIN 5.9 g/dL (6.4-8.2)
[2021-04-22 19:22] LABS: APTT 26.8 Seconds (24.5-32.8); INR 0.95; PROTIME 10.4 Seconds (10.5-12.1)
[2021-04-22 19:47] LABS: URINE BILIRUBIN NEGATIVE (Negative); URINE BLOOD NEGATIVE (Negative); URINE CLARITY CLEAR; URINE COLOR YELLOW; URINE GLUCOSE-RANDOM* TRACE (Negative); URINE KETONES NEGATIVE (Negative); URINE LEUKOCYTES-REFLEX NEGATIVE (Negative); URINE NITRITE-REFLEX NEGATIVE (Negative); URINE PROTEIN (DIPSTICK) NEGATIVE (Negative); URINE UROBILINOGEN 0.2 E.U./dl (0.2-1.0)
[2021-04-22 19:52] LABS: AMP/METHAMP POSITIVE (Negative); BARBITURATES Negative (Negative); BENZODIAZEPINES Negative (Negative); COCAINE Negative (Negative); METHADONE Negative (Negative); OPIATES Negative (Negative); PCP Negative (Negative)
[2021-04-22] MEDS ORDERED: SEE INSTRUCTIONS (23:06)
[2021-04-22 23:50] VITALS: BP 152/82
[2021-04-23 00:42] LABS: HEMATOCRIT 41.6 % (42.0-52.0); HEMOGLOBIN 13.8 gm/dL (14.0-18.0); MCH 27.9 pg (26.0-34.0); MCV 84.4 fL (80.0-100.0); RBC 4.94 mil/uL (4.50-6.00); RDW 14.7 % (10.5-14.5); WBC 6.9 thou/uL (4.0-11.0)
[2021-04-23 01:08] LABS: CHOLESTEROL 130 mg/dL (<200); HDL CHOLESTEROL 37 mg/dL (>40); LDL CHOLESTEROL 57 mg/dL (<100); SERUM ASSESSMENT Clear; TC:HDL 3.5 Ratio (Not establshd); TRIGLYCERIDE 183 mg/dL (<150); VLDL 37 mg/dL (<40)
[2021-04-23 01:22] VITALS: BP 145/71
[2021-04-23 01:49] LABS: CALCIUM 7.8 mg/dL (8.5-10.1); CREATININE 1.1 mg/dL (0.7-1.3); POTASSIUM 3.8 mmol/L (3.5-5.1)
[2021-04-23 02:25] VITALS: BP 155/86
[2021-04-23 04:48] VITALS: BP 163/98
--- NOTE | 2021-04-23 07:13 | EKG ---
[address] [place] [address] ELECTROCARDIOGRAM REPORT Name: BRITTANEY AGUILLON Room #: 219-P ADM IN M.R.#: [id number] Admission: 04/22/21 Attend Phys: Blane Swanson MD Discharge: Date of : 64 Report #: [id number] [facility] ED Test Date: 2021-04-22 Test Time: 18:43:15 Pat Name: BRITTANEY AGUILLON Department: Room: 219 Gender: M Sharebroker: tanja : 1960 Requested By: Yoseph Person Order Number: [id number] MD: Tyson Navarro Measurements Intervals [place] Rate: 77 P: -5 NE: 177 QRS: -39 QRSD: 106 T: 265 QT: 402 QTc: 455 Interpretive Statements Sinus rhythm Left axis deviation RSR' in V1 or V2, probably normal variant Nonspecific T abnormalities, diffuse leads Compared to ECG 03/20/2020 23:57:51 RSR' in V1 or V2 now present T-wave abnormality still present Electronically Signed On 04-23-2021 7:13:23 RECYCLE DRIVER by Tyson Navarro [email or web address] <ELECTRONICALLY SIGNED> By: Tyson Navarro MD, FACC 04/23/21 0713 184 184 Tyson Navarro MD, [facility] /EPI
--- NOTE | 2021-04-23 08:45 | NUR ---
OT ATTEMPTED EVALUATION AT 0757 THIS AM. PT. ADAMENTLY REFUSING OT SERVICES, STATES PLANNING TO LEAVE HOSPITAL THIS MORNING AND DOES NOT WANT THERAPY, EVEN AFTER EDUCATION ON PURPOSE OF OT. OT WILL PLACE PT. ON D/C AND REQUEST NEW ORDERS IF PT. WILLING TO PARTICIPATE.
[2021-04-23 08:50] VITALS: BP 180/89
[2021-04-23 09:18] VITALS: BP 180/89
--- NOTE | 2021-04-23 09:27 | NUR ---
WENT INTO PATIENTS ROOM AFTER THE THEATRICAL PERFORMER NOTIFIED ME THAT THE PATIENT WAS WANTING TO LEAVE. UPON WALKING INTO THE ROOM THE PATIENT STATED "IM CHECKING OUT, I HAVE A DAUGHTER TO TAKE CARE OF". I EDUCATED THE PATIENT ON WHY HE CAME INTO THE HOSPITAL AND ADVISED HIM IT WOULD BE IN HIS BEST INTEREST TO WAIT FOR THE PHYSICIAN. PT DEMAND HIS IV AND TELE REMOVED. BOTH REMOVED BY THIS NURSE DR. THURSTON CALLED AND NOTIFIED - SHE SAID SHE WOULD BE THERE IN 10 MINS OR HE CAN LEAVE AMA IF HE DOESNT WANT TO WAIT. THE PATIENT CAME OUT TO THE DESK MULTIPLE TIMES SAYING HE WAS GOING TO LEAVE, HE WASNT GOING TO WAIT. WHILE THIS NURSE WAS AT THE DESK OBTAINING AMA FORM, PATIENT WAS DISCOVERED TO ALREADY BE WALKING DOWN THE HALLWAY WITH BELONGINGS IN HAND. I WAS ABLE TO CATCH UP WITH THE PATIENT, AGAIN ASKED HIM IF HE WAS SURE THIS IS WHAT HE WANTED AND EDUCATED HIM ON HIS BEST TO WAIT FOR THE DR. HE REFUSED. AMA PAPER SIGNED BY PATIENT, ASP NET MVC DEVELOPER MADE AWARE.
--- NOTE | 2021-04-23 10:28 | NUR ---
ORDERS RECEIVED FOR EVAL AND TREAT HOWEVER Pt DISCHARGED FROM HOSPITAL PRIOR TO BEING SEEN
[2021-04-24 03:06] LABS: GLYCOHEMOGLOBIN (HGB A1C) 5.4 % (4.8-5.6)
[2021-04-24] MEDS ORDERED: NORVASC10 MG PO (06:08)
== END 2021-04-23 09:30 | disposition left against medical advice (07) | DRG 69 ==
LOC: ER 17:32 → EROBS 23:10 → 2N 23:10
PROVIDERS: Emergency Medicine; Nurse Practitioner Family; ADMIT Hospitalist; ATTEND Hospitalist
DX: G45.9 Transient cerebral ischemic attack, unspecified (principal); G93.41 Metabolic encephalopathy; E46 Unspecified protein-calorie malnutrition; Z68.41 Body mass index [BMI] 40.0-44.9, adult; I10 Essential (primary) hypertension; K21.9 Gastro-esophageal reflux disease without esophagitis; J44.9 Chronic obstructive pulmonary disease, unspecified; E87.6 Hypokalemia; Z88.0 Allergy status to penicillin; Z20.822 Contact with and (suspected) exposure to COVID-19; Z53.29 Procedure and treatment not carried out because of patient's decision for other reasons

== ENCOUNTER 2021-04-24 04:56 | Emergency (ER) | payer OTHER ==
[~2021-04-24] VITALS: Ht 182.9 cm; Wt 93.0 kg
[~2021-04-24 04:56] MED LIST changes: +SEE INSTRUCTIONS
[2021-04-24] MEDS ORDERED: NORVASC10 MG PO (06:08)
[2021-04-24 06:14] VITALS: BP 175/99
== END 2021-04-24 07:55 | disposition home or self-care (01) ==
LOC: ER 04:56
DX: R53.1 Weakness (principal); F19.10 Other psychoactive substance abuse, uncomplicated; R20.0 Anesthesia of skin; I10 Essential (primary) hypertension; F17.210 Nicotine dependence, cigarettes, uncomplicated; Z98.890 Other specified postprocedural states; Z88.0 Allergy status to penicillin

== ENCOUNTER 2021-06-17 16:03 | Emergency (ER) | payer OTHER ==
[~2021-06-17 16:03] MED LIST changes: +NORVASC10 MG PO
[2021-06-17 16:08] VITALS: BP 199/123
[2021-06-17 18:55] LABS: ABSOLUTE NEUTROPHILS 8.9 thou/uL (1.4-8.2); BASOPHILS 0.8 % (0.0-2.0); HEMATOCRIT 42.8 % (42.0-52.0); HEMOGLOBIN 14.1 gm/dL (14.0-18.0); MCH 27.6 pg (26.0-34.0); MCV 83.6 fL (80.0-100.0); MONOCYTES 7.6 % (1.0-8.0); PLATELET COUNT 255 thou/uL (150-400); POLYS 78.6 % (36.0-66.0); RBC 5.12 mil/uL (4.50-6.00); RDW 14.1 % (10.5-14.5); WBC 11.3 thou/uL (4.0-11.0)
[2021-06-17 18:59] LABS: CALCIUM 9.1 mg/dL (8.5-10.1); CREATININE 0.9 mg/dL (0.7-1.3)
[2021-06-17] MEDS ORDERED: DOXYCYCLINE 10100 MG PO (19:22)
== END 2021-06-17 20:35 | disposition home or self-care (01) ==
LOC: ER 16:03
PROVIDERS: Student in an Organized Health Care Education/Training Program
DX: L03.113 Cellulitis of right upper limb (principal); F17.210 Nicotine dependence, cigarettes, uncomplicated; Z79.899 Other long term (current) drug therapy; Z88.0 Allergy status to penicillin